=== PATIENT | female | born 1975 | race Caucasian/White ===

== ENCOUNTER → 2017-11-21 | Outpatient (CLI) | payer BC, MEDICAID ==
--- NOTE | 2017-11-21 15:56 | RAD ---
Thyroid ultrasound 11/21/2017 Indication: Hypothyroidism. Fullness of the neck. Discussion: Ultrasound evaluation of the thyroid gland was performed. Static images submitted to PACS. No comparison studies available. The thyroid gland is diffusely enlarged. Right thyroid measures 5.7 x 2.1 x 2.1 cm. Left thyroid measures 5. 2.1 x 2.2 cm. The thyroid isthmus is thickened measuring up to 9 mm in diameter. The thyroid gland is diffusely heterogenous echotexture. Color Doppler imaging demonstrates possible mild hyperemia throughout the thyroid gland. There is a small calcification present in the superior thyroid without a definitive associated nodule. Impression: Thyromegaly, with diffuse heterogenous appearance of the thyroid gland and possible mild hyperemia. Findings may reflect thyroiditis in the appropriate clinical setting.
== END | disposition home or self-care (01) ==
LOC: US 13:26
PROVIDERS: ATTEND Physician Assistant Medical
DX: E01.0 Iodine-deficiency related diffuse (endemic) goiter (principal)
CPT/HCPCS: 76536

== ENCOUNTER 2019-02-19 17:11 | Emergency (ER) | payer BC ==
[~2019-02-19] VITALS: Ht 170.2 cm; Wt 110.5 kg
[2019-02-19] MEDS ORDERED: IV NORMAL SALINE 1,000ML 1,000 ML IV ONE (17:30)
[2019-02-19] MEDS ORDERED: cloNIDine HCL 0.1 MG TABLET ONE (17:36)
[2019-02-19] MEDS ORDERED: diphenhydrAMINE 50 MG/ML VIAL ONE (17:36)
[2019-02-19] MEDS ORDERED: KETOROLAC 30 MG/ML VIAL. ONE (17:37)
[2019-02-19] MEDS ORDERED: METOCLOPRAMIDE HCL 10 MG/2 ML VIAL. ONE (17:37)
--- NOTE | 2019-02-19 17:39 | PHYS DOC ---
Past History Past Medical History: Anxiety, Depression, Hypertension, Hypothyroid (DWAINE DAVEY DO) Past Surgical History: Tonsillectomy, Other (DWAINE DAVEY DO) Smoking: Non-smoker Alcohol Use: None Drug Use: None (DWAINE DAVEY DO) Adult General Chief Complaint Chief Complaint: HYPERTENSION HPI HPI 43-year-old female presents with headache and hypertension. Patient states that she has had a right-sided possible headache for the last 3 days. It has gone away overnight to except it is not there but returns during the day. Today the patient was feeling the headache as well as seeing a couple of floaters in her vision. 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 The patient has hypertension baseline. She takes metoprolol extended release once a day. She has been taking her medicines. This high blood pressure was concerning her so she came to the ED. Patient does not have a significant history of headaches. She gets headaches, but they usually go away the same day with [id number] treatment. She has tried Tylenol and ibuprofen without relief. She denies any recent trauma or falls. She denies any weakness or altered sensation. Denies fever or chills. (DWAINE DAVEY DO) Review of Systems Review of Systems Constitutional: Denies fever or chills [] Eyes: Denies change in visual acuity, redness, or eye pain [] HENT: Denies nasal congestion or sore throat [] Respiratory: Denies cough or shortness of breath [] Cardiovascular: No additional information not addressed in HPI [] GI: Denies abdominal pain, nausea, vomiting, bloody stools or diarrhea [] : Denies dysuria or hematuria [] Musculoskeletal: Denies back pain or joint pain [] Integument: Denies rash or skin lesions [] Neurologic: Headache. Denies focal weakness or sensory changes [] Endocrine: Denies polyuria or polydipsia [] All other systems were reviewed and found to be within normal limits, except as documented in this note. (DWAINE DAVEY DO) Current Medications Current Medications Current Medications Medications (Trade) Dose Ordered Sig/Arlene Start Time Stop Time Status Last Admin Dose Admin Clonidine HCl (Catapres) 0.1 mg 1X ONCE 02/19/19 17:30 02/19/19 17:31 UNV Diphenhydramine HCl (Benadryl) 25 mg 1X ONCE 02/19/19 17:30 02/19/19 17:31 UNV Ketorolac Tromethamine (Toradol 30mg Vial) 30 mg 1X ONCE 02/19/19 17:30 02/19/19 17:31 UNV Metoclopramide HCl (Reglan Vial) 10 mg 1X ONCE 02/19/19 17:30 02/19/19 17:31 UNV Sodium Chloride 1,000 ml @ 1,000 mls/hr 1X ONCE 02/19/19 17:30 02/19/19 18:29 UNV (DWAINE DAVEY DO) Allergies Allergies Allergies Coded Allergies Type Severity Reaction Last Updated Verified No Known Drug Allergies 02/19/19 No (DWAINE DAVEY DO) Physical Exam Physical Exam Constitutional: Well developed, obese, well nourished, no acute distress, non- toxic appearance. [] HENT: Normocephalic, atraumatic, bilateral external ears normal, oropharynx moist, no oral exudates, nose normal. [] Eyes: PERRLA, EOMI, conjunctiva normal, no discharge. [] Neck: Normal range of motion, no tenderness, supple, no stridor. [] Cardiovascular:Heart rate regular rhythm, no murmur [] Lungs & Thorax: Bilateral breath sounds clear to auscultation [] Abdomen: Bowel sounds normal, soft, no tenderness, no masses, no pulsatile masses. [] Skin: Warm, dry, no erythema, no rash. [] Back: No tenderness, no CVA tenderness. [] Extremities: No tenderness, no cyanosis, no clubbing, ROM intact, no edema. [] Neurologic: Alert and oriented X 3, normal motor function, normal sensory function, no focal deficits noted. [] Psychologic: Affect normal, judgement normal, mood anxious. [] (DWAINE DAVEY DO) Current Patient Data Vital Signs Vital Signs Date Time Temp Pulse Resp B/P (MAP) Pulse Ox O2 Delivery O2 Flow Rate FiO2 02/19/19 17:19 99.0 101 18 96 Room Air (DWAINE DAVEY DO) EKG EKG [] (DWAINE DAVEY DO) Radiology/Procedures Radiology/Procedures [] (DWAINE DAVEY DO) Course & Med Decision Making Course & Med Decision Making Pertinent Labs and Imaging studies reviewed. (See chart for details) Patient was given 0.1 of clonidine by mouth. I have ordered 1 L normal saline, 30 mg of Toradol, and milligrams of Reglan, 25 mg of Benadryl by IV. Her labs are pending. I'm signing the patient out to Dr. Fairchild at 1815. He will determine her final disposition. [] (DWAINE DAVEY DO) Dragon Disclaimer Dragon Disclaimer This electronic medical record was generated, in whole or in part, using a voice recognition dictation system. (DWAINE DAVEY DO) Departure Departure: Impression: Primary Impression: Hypertension, essential Additional Impression: Headache Disposition: HOME, SELF-CARE Condition: STABLE Referrals: NESS LI (PCP) Patient Instructions: Headache, FAQs, Hypertension Problem Qualifiers Additional Impression: Headache Headache type: unspecified Headache chronicity pattern: acute headache Intractability: not intractable Qualified Codes: R51 - Headache DWAINE DAVEY DO Feb 19, 2019 17:38 SOFI FAIRCHILD Jr., DO Feb 19, 2019 18:32
[2019-02-19] MEDS ORDERED: KETOROLAC 30 MG/ML VIAL. IV ONE (17:45)
[2019-02-19] MEDS ORDERED: METOCLOPRAMIDE HCL 10 MG/2 ML VIAL. IV ONE (17:45)
[2019-02-19] MEDS ORDERED: diphenhydrAMINE 50 MG/ML VIAL IVP ONE (17:45)
[2019-02-19] MEDS ORDERED: cloNIDine HCL 0.1 MG TABLET PO ONE (17:45)
[2019-02-19 18:07] LABS: BASO # 0.1 x10^3/uL (0.0-0.2); BASO % 1 % (0-3); EOS # 0.3 x10^3/uL (0.0-0.7); EOS % 3 % (0-3); HEMATOCRIT 41.7 % (36.0-47.0); HEMOGLOBIN 14.1 g/dL (12.0-15.5); LYMPH % 39 % (24-48); MEAN CORPUSCULAR HEMOGLOBIN 30 pg (25-35); MEAN CORPUSCULAR HGB CONC 34 g/dL (31-37); MEAN CORPUSCULAR VOLUME 89 fL (79-100); MONO # 0.4 x10^3/uL (0.0-1.1); MONO % 5 % (0-9); NEUT % 52 % (31-73); PLATELET COUNT 237 x10^3/uL (140-400); RED CELL DISTRIBUTION WIDTH 13.6 % (11.5-14.5); WHITE BLOOD COUNT 7.6 x10^3/uL (4.0-11.0)
[2019-02-19 18:21] LABS: ALBUMIN 3.9 g/dL (3.4-5.0); ALBUMIN/GLOBULIN RATIO 0.9 (1.0-1.7); CALCIUM 9.4 mg/dL (8.5-10.1); GFR 60.5; POTASSIUM 3.6 mmol/L (3.5-5.1); TOTAL BILIRUBIN 0.6 mg/dL (0.2-1.0); TOTAL PROTEIN 8.2 g/dL (6.4-8.2)
[2019-02-19 18:46] VITALS: BP 125/76
== END 2019-02-19 18:46 | disposition home or self-care (01) ==
LOC: ER 17:11
DX: I10 Essential (primary) hypertension (principal); R51 Headache; F41.9 Anxiety disorder, unspecified; F32.9 Major depressive disorder, single episode, unspecified; E03.9 Hypothyroidism, unspecified
CPT/HCPCS: 36415; 80053; 85025; 96374; 96375; 99283; J1200; J1885; J2765; J7030